=== PATIENT | female | born 1950 | race Caucasian/White ===

== ENCOUNTER 2021-09-20 12:12 | Emergency (ER) | payer MEDICARE, OTHER ==
[~2021-09-20] VITALS: Ht 165.1 cm; Wt 62.1 kg
[2021-09-20] MEDS ORDERED: LORA-259 PO (12:24)
[2021-09-20] MEDS ORDERED: LORA2VIA11 IM (12:24)
[2021-09-20] MEDS ORDERED: ACET-868 PO (12:24)
[2021-09-20] MEDS ORDERED: AMIT50TA3 PO (12:24)
[2021-09-20] MEDS ORDERED: BUSP15TA3 PO (12:24)
[2021-09-20] MEDS ORDERED: MULT-447 PO (12:24)
[2021-09-20] MEDS ORDERED: MAGN400O6 PO (12:24)
[2021-09-20] MEDS ORDERED: DOCU-141 PO (12:24)
[2021-09-20] MEDS ORDERED: ATOR40TA PO (12:24)
[2021-09-20] MEDS ORDERED: LEVE500T9 PO (12:24)
[2021-09-20] MEDS ORDERED: BISA10SU11 RC (12:24)
[2021-09-20] MEDS ORDERED: NA P133E RC (12:24)
[2021-09-20] MEDS ORDERED: PROP40TA7 PO (12:24)
[2021-09-20] MEDS ORDERED: LEVO75TA7 PO (12:24)
--- NOTE | 2021-09-20 12:38 | NUR ---
DR BRUNER AT BEDSIDE FOR EVAL
--- NOTE | 2021-09-20 12:41 | NUR ---
URINE SAMPLE COLLECTED AND SENT TO LAB
[2021-09-20] MEDS ORDERED: LEVETIRACETAM (500MG) 500 MG in IV NS 0.9% 100 ML IV ONE (13:00)
[2021-09-20 13:14] LABS: BASOPHILS % (AUTO) 0.4 % (0.0-2.0); EOSINOPHILS % (AUTO) 1.2 % (0.0-6.0); HEMATOCRIT 38 % (33-45); HEMOGLOBIN 12.4 g/dL (11.5-14.8); LYMPHOCYTES # (AUTO) 1.4 K/uL (0.8-4.8); LYMPHOCYTES % (AUTO) 17.6 % (20.0-44.0); MEAN CORPUSCULAR HGB CONC 33 g/dl (31.0-36.0); MEAN CORPUSCULAR VOLUME 98 fL (82-100); MONOCYTES # (AUTO) 0.5 K/uL (0.1-1.30); MONOCYTES % (AUTO) 6.4 % (2.0-12.0); NEUTROPHILS # (AUTO) 5.9 K/uL (1.8-8.9); NEUTROPHILS % (AUTO) 74.4 % (43.0-81.0); PLATELET COUNT (AUTO) 204 K/uL (150-450); RED BLOOD CELL COUNT(AUTO) 3.86 MIL/uL (4.0-5.2); WHITE BLOOD COUNT (AUTO) 7.9 K/uL (4.3-11.0)
--- NOTE | 2021-09-20 13:20 | NUR ---
PT TAKEN TO RADIOLOGY
[2021-09-20 13:24] LABS: CALCIUM, SERUM 8.9 mg/dL (8.5-10.1); CREATININE 0.5 mg/dL (0.6-1.3); POTASSIUM 3.8 mmol/L (3.5-5.1)
[2021-09-20 13:25] LABS: ALCOHOL, BLOOD < 3 mg/dL (0-0)
[2021-09-20 13:31] LABS: ALBUMIN 3.3 g/dL (3.4-5.0); BILIRUBIN,TOTAL 0.2 mg/dL (0.2-1.0); TOTAL PROTEIN, SERUM 6.9 g/dL (6.4-8.2)
[2021-09-20 13:40] LABS: THYROID STIMULATING HORMONE 1.687 uIU/mL (0.358-3.74)
[2021-09-20 13:54] LABS: BILIRUBIN,DIRECT 0.1 mg/dL (0.0-0.2)
[2021-09-20] MEDS ORDERED: LEVETIRACETAM (500MG) 1,000 MG in IV NS 0.9% 100 ML IV SCH (14:00)
[2021-09-20] MEDS ORDERED: LEVETIRACETAM (500MG) 1,000 MG in IV NS 0.9% 100 ML IV ONE (14:09)
--- NOTE | 2021-09-20 14:13 | NUR ---
[facility] ETA 45 MINS.
--- NOTE | 2021-09-20 15:30 | NUR ---
IV removed. Catheter intact and site benign. Pressure and 4x4 applied to site. No bleeding noted.
--- NOTE | 2021-09-20 15:35 | NUR ---
Patient discharged to nursing home/snf in stable condition. Endorsed to emt at bedside. Written and verbal after care instructions given. Patient verbalizes understanding of instruction.
[2021-09-20 15:58] VITALS: BP 145/90
== END 2021-09-20 15:59 ==
LOC: ER 12:15
DX: G40.909 Epilepsy, unspecified, not intractable, without status epilepticus (principal); I10 Essential (primary) hypertension; F32.A Depression, unspecified; M79.7 Fibromyalgia; E03.9 Hypothyroidism, unspecified; E78.5 Hyperlipidemia, unspecified; Z88.6 Allergy status to analgesic agent; Z88.8 Allergy status to other drugs, medicaments and biological substances; Z79.899 Other long term (current) drug therapy; Z86.73 Personal history of transient ischemic attack (TIA), and cerebral infarction without residual deficits
CPT/HCPCS: 99285; 96365; 96366; 93005; 71045; 70450; 85025; 80048; 80076; 36415; 84443; 80320; 80307; J7030 ×2; J1953 ×2; G0480